=== PATIENT | female | born 1970 | race Caucasian/White ===

== ENCOUNTER 2016-11-25 12:05 | Emergency (ER) | payer BC ==
[2016-11-25 10:57] LABS: BASO % 0.6 % (0-2); EOS % 2.2 % (0-7); EOSINOPHIL ABSOLUTE COUNT 0.1 tho/cmm (0.0-0.7); HCT-HEMATOCRIT 40.1 % (34.0-49.0); IMMATURE GRANULOCYTES ABSOLUTE 0.02 tho/cmm (0-0.03); IMMATURE GRANULOCYTES PERCENT 0.3 % (0-0.3); LYMPH % 41.3 % (20-45); LYMPH ABSOLUTE COUNT 2.6 tho/cmm (0.8-4.5); MCH (MEAN CORPUSCULAR HGB) 29.5 pg (28.0-32.0); MCHC MEAN CORPUSCULAR HGB CONC 34.9 % (32.0-36.0); MCV (MEAN CELL VOLUME) 84.4 fl (82.0-96.0); MEAN PLATELET VOLUME 9.5 cmc (9.4-12.4); MONOCYTE ABSOLUTE COUNT 0.5 tho/cmm (0.0-1.2); NEUTROPHILS % 47.6 % (40-80); PLATELET COUNT 229 tho/cmm (150-450); RED BLOOD COUNT 4.75 mil/cmm (4.00-5.20); RED CELL DISTRIBUTION WIDTH 13.9 % (12.4-16.4); WHITE BLOOD COUNT 6.4 tho/cmm (4.0-10.0)
[2016-11-25 11:03] LABS: INR 0.8 INR (0.9-1.1); PROTHROMBIN TIME 9.7 SECONDS (9.0-13.6)
[2016-11-25 11:11] LABS: ANION GAP 14 mmol/L (0-20); BLOOD UREA NITROGEN 29 mg/dl (6-24); CALCIUM 9.4 mg/dl (8.5-10.5); CARBON DIOXIDE-VENOUS 25 mmol/L (22-32); CHLORIDE 97 mmol/l (96-110); CREATININE 0.77 mg/dl (0.50-1.10); GLUCOSE 306 mg/dL (70-110); SODIUM 132 mmol/L (135-145); eGFR VALUE FOR BLACK >90 mL/Min
[2016-11-25 11:13] LABS: POTASSIUM 4.1 mmol/L (3.7-5.1)
[~2016-11-25 12:05] MED LIST: ACID REDUCER150 M1 PO; BAYER BACK PO; CARISOPRODOL350 M1 PO; CIPRO250 M2 PO; FLUOXETINE HCL10 M1 PO; GLUCOPHAGE1000 M1 PO; LISINOPRIL10 M1 PO; LOFIBRA160 M1 PO; MECLIZINE HCL25 M3 PO; MULTIVITAMINS1 EAC7 PO; NEURONTIN100 M1 PO; NOVOLIN 70100 UNITS/ SC; NOVOLOG FL100 UNIT/2 SC; PROBIOTIC1 EAC8 PO; PROZAC40 M1 PO; SIMVASTATIN10 M1 PO; TAGAMET HB200 M2 PO; TOUJEO SOL300 UNIT/1 SC; [UNRECOGNIZED DRUG - OTHER] PO
== END 2016-11-25 14:44 ==
LOC: EDMED 12:05
PROVIDERS: Emergency Medicine
DX: E11.42 Type 2 diabetes mellitus with diabetic polyneuropathy (principal); E11.65 Type 2 diabetes mellitus with hyperglycemia; M21.372 Foot drop, left foot; Z79.4 Long term (current) use of insulin; E78.5 Hyperlipidemia, unspecified; Z90.49 Acquired absence of other specified parts of digestive tract; Z90.710 Acquired absence of both cervix and uterus; Z90.89 Acquired absence of other organs
CPT/HCPCS: G8978-GP-CJ; G8979-GP-CJ; G8980-GP-CJ; J2270; J2405; J7030